=== PATIENT | female | born 1980 | race Native Hawaiian/Other Pacific Islander ===

== ENCOUNTER 2020-10-19 17:59 | Emergency (ER) | payer BC, OTHER ==
[~2020-10-19] VITALS: Ht 165.1 cm; Wt 92.5 kg
--- NOTE | 2020-10-19 18:07 | NUR ---
Patient to ER bed 5 to gown for evaluation. Side rails up.
[2020-10-19 18:08] VITALS: BP_SYST 186
--- NOTE | 2020-10-19 18:08 | NUR ---
Pt came into ER with complaint of approximatley 1cm laceration to left first digit. Pain 5/10. Pt reports she was cutting with an exacto knife and sliced her finger. Pt resting in rney no distress noted.
--- NOTE | 2020-10-19 18:10 | NUR ---
Laceration irrigated with sterile saline soultion and covered with sterile gauze.Awaiting
--- NOTE | 2020-10-19 18:12 | NUR ---
YONATHAN Monterroso at bedside examining patient.
--- NOTE | 2020-10-19 18:39 | NUR ---
Patient has a approximatley 1 cm laceration to Left 1st digit. Dr. Gomez applied dermabond. Edges well approximated. Site cleansed with betadine and sterile saline. Dressing of steri strips and rolled gauze applied to site. No bleeding noted. Pt tolerated well.
[2020-10-19] MEDS ORDERED: DIPH-TET-PERTUS Vaccine 0.5 ML VIAL (ADACEL) I.M. ONE (19:00)
--- NOTE | 2020-10-19 19:02 | NUR ---
Patient given written and verbal discharge instructions and verbalizes understanding. ER MD discussed with patient the results and treatment provided. Patient in stable condition.Patient educated on pain management and to follow up with PMD. Pain Scale 0/10. Opportunity for questions provided and answered. Medication side effect fact sheet provided.
[2020-10-19 19:03] VITALS: BP_SYST 186
== END 2020-10-19 19:02 | disposition home or self-care (01) ==
LOC: SED 17:59
DX: S61.012A Laceration without foreign body of left thumb without damage to nail, initial encounter (principal); I10 Essential (primary) hypertension; W26.0XXA Contact with knife, initial encounter; Y93.89 Activity, other specified; Y92.89 Other specified places as the place of occurrence of the external cause; Y99.8 Other external cause status
CPT/HCPCS: 90715; 99283